=== PATIENT | female | born 1995 | race African-American/Black ===

== ENCOUNTER 2019-03-31 14:33 | Emergency (ER) | payer MEDICAID ==
[~2019-03-31] VITALS: Ht 165.1 cm; Wt 61.0 kg
[2019-03-31] MEDS ORDERED: FAMOTIDINE 20MG TABLET PO ONE (15:30)
[2019-03-31 19:30] VITALS: BP 102/66
== END 2019-03-31 20:40 | disposition home or self-care (01) ==
LOC: ER 14:33
DX: O26.892 Other specified pregnancy related conditions, second trimester (principal); R10.13 Epigastric pain; R11.0 Nausea; F12.10 Cannabis abuse, uncomplicated; F17.200 Nicotine dependence, unspecified, uncomplicated; Z98.890 Other specified postprocedural states; Z3A.19 19 weeks gestation of pregnancy
CPT/HCPCS: 76805; 99284

== ENCOUNTER 2019-06-01 12:57 | Observation (INO) | payer MEDICAID ==
[~2019-06-01] VITALS: Ht 160 cm; Wt 72.6 kg
[2019-06-01] MEDS ORDERED: LACTATED RINGERS 1,000 ML IV SCH (13:45)
[2019-06-01] MEDS ORDERED: FERR325T6 MT (14:34)
[2019-06-01] MEDS ORDERED: PREN1TAB78 MT (14:34)
[2019-06-01 15:36] LABS: CLARITY URINE CLEAR (CLEAR); COLOR URINE YELLOW (YELLOW); KETONES URINE NEGATIVE (NEGATIVE); LEUKOCYTE ESTERASE URINE NEGATIVE (NEGATIVE); NITRITE URINE NEGATIVE (NEGATIVE); OCCULT BLOOD URINE NEGATIVE (NEGATIVE); PROTEIN URINE NEGATIVE (NEGATIVE); SPECIFIC GRAVITY URINE 1.015 (1.005-1.030); UROBILINOGEN URINE 0.2 E.U./dL (0.2-1.0)
[2019-06-01] MEDS ORDERED: ACETAMINOPHEN 500MG TABLET PO NR (16:00)
== END 2019-06-01 16:30 | disposition home or self-care (01) ==
LOC: 8 EST LDRP 12:57 → 8 EST A/PP 15:33
PROVIDERS: ADMIT Obstetrics & Gynecology; ATTEND Obstetrics & Gynecology
DX: O26.893 Other specified pregnancy related conditions, third trimester (principal); R10.30 Lower abdominal pain, unspecified; Z3A.29 29 weeks gestation of pregnancy
CPT/HCPCS: 81003; 99281; G0378; 96360; J7120

== ENCOUNTER 2021-10-08 21:37 | Emergency (ER) | payer MEDICAID ==
[~2021-10-08] VITALS: Ht 157.5 cm; Wt 59.1 kg
[~2021-10-08 21:37] MED LIST: PREN1TAB78 MT
[2021-10-08] MEDS ORDERED: HYDR25SU37 RC (22:42)
[2021-10-08] MEDS ORDERED: LIDO28CR2 TP (22:42)
[2021-10-08] MEDS ORDERED: POLY17PO3 MT (22:42)
[2021-10-08 22:49] VITALS: BP 123/62
== END 2021-10-08 22:52 | disposition home or self-care (01) ==
LOC: ER 21:37
DX: K64.4 Residual hemorrhoidal skin tags (principal); J45.909 Unspecified asthma, uncomplicated; Z98.890 Other specified postprocedural states; F12.10 Cannabis abuse, uncomplicated; Z79.899 Other long term (current) drug therapy
CPT/HCPCS: 99283